=== PATIENT | female | born 1990 | race Two or more races ===

== ENCOUNTER 2018-03-10 20:36 | Emergency (ER) | payer OTHER ==
[~2018-03-10] VITALS: Ht 160 cm; Wt 45.4 kg
== END 2018-03-11 02:40 | disposition home or self-care (01) ==
LOC: ER 20:36
DX: J03.90 Acute tonsillitis, unspecified (principal); J06.9 Acute upper respiratory infection, unspecified; R53.1 Weakness

== ENCOUNTER → 2019-03-08 | Emergency (ER) | payer OTHER ==
[~2019-03-08] VITALS: Ht 162.6 cm; Wt 45.4 kg
== END | disposition home or self-care (01) ==
LOC: ER 07:00
DX: J11.1 Influenza due to unidentified influenza virus with other respiratory manifestations (principal); B96.0 Mycoplasma pneumoniae [M. pneumoniae] as the cause of diseases classified elsewhere

== ENCOUNTER 2019-06-18 02:19 | Emergency (ER) | payer OTHER ==
[~2019-06-18] VITALS: Ht 165.1 cm; Wt 50.8 kg
== END 2019-06-18 07:52 | disposition home or self-care (01) ==
LOC: ER 02:19 → EMR PED 02:20 → ER 02:20 → EMR PED 07:52
DX: R11.11 Vomiting without nausea (principal)

== ENCOUNTER 2019-09-29 15:43 | Emergency (ER) | payer OTHER ==
[~2019-09-29] VITALS: Ht 162.6 cm; Wt 51.7 kg
== END 2019-09-29 19:59 | disposition home or self-care (01) ==
LOC: ER 15:43
DX: N92.1 Excessive and frequent menstruation with irregular cycle (principal)

== ENCOUNTER 2020-01-14 12:16 | Emergency (ER) | payer OTHER ==
[~2020-01-14] VITALS: Ht 165.1 cm; Wt 53.1 kg
== END 2020-01-14 14:53 | disposition home or self-care (01) ==
LOC: ER 12:16
DX: O20.0 Threatened abortion (principal); O46.8X1 Other antepartum hemorrhage, first trimester

== ENCOUNTER 2020-06-24 12:09 | Outpatient (CLI) | payer OTHER | END 2020-06-25 10:00 | disposition home or self-care (01) | LOC: OBS/DEL 12:09 | PROVIDERS: ATTEND Obstetrics & Gynecology | DX: O23.33 Infections of other parts of urinary tract in pregnancy, third trimester (principal); O26.893 Other specified pregnancy related conditions, third trimester; E16.1 Other hypoglycemia ==

== ENCOUNTER 2020-07-23 23:52 | Inpatient (IN) | payer OTHER ==
[~2020-07-23] VITALS: Ht 167.6 cm; Wt 2.3 kg
[2020-07-24] MEDS ORDERED: PRENATAL TABLE1 EAC1 PO (00:36)
[2020-07-24] MEDS ORDERED: FOLIC ACID20 MG PO (00:36)
== END 2020-07-27 13:33 | DRG 788 ==
LOC: OBS/DEL 23:52 → LDR 07-24 09:04 → O/R 07-24 12:16 → OB/GYN 07-24 13:39
PROVIDERS: ADMIT Obstetrics & Gynecology; ATTEND Obstetrics & Gynecology
PROC: 4A1HXCZ Monitoring of Products of Conception, Cardiac Rate, External Approach (ICD-10-PCS; 2020-07-24)
PROC: 10D00Z1 Extraction of Products of Conception, Low, Open Approach (ICD-10-PCS; principal; 2020-07-24 09:45)
DX: O34.211 Maternal care for low transverse scar from previous cesarean delivery (principal); O82 Encounter for cesarean delivery without indication; Z3A.37 37 weeks gestation of pregnancy; Z37.0 Single live birth; Z22.330 Carrier of Group B streptococcus

== ENCOUNTER 2020-08-10 15:30 | Emergency (ER) | payer OTHER ==
[~2020-08-10] VITALS: Ht 165.1 cm; Wt 51.7 kg
[~2020-08-10 15:30] MED LIST: FOLIC ACID20 MG PO; PRENATAL TABLE1 EAC1 PO
== END 2020-08-10 18:26 | disposition home or self-care (01) ==
LOC: ER 15:30
DX: G89.18 Other acute postprocedural pain (principal); R10.84 Generalized abdominal pain; R53.1 Weakness; O90.89 Other complications of the puerperium, not elsewhere classified; Z03.818 Encounter for observation for suspected exposure to other biological agents ruled out

== ENCOUNTER 2020-12-21 15:39 | Emergency (ER) | payer OTHER ==
[~2020-12-21] VITALS: Ht 162.6 cm; Wt 54.4 kg
== END 2020-12-21 18:35 | disposition home or self-care (01) ==
LOC: ER 15:39
DX: B34.9 Viral infection, unspecified (principal); N23 Unspecified renal colic; N39.0 Urinary tract infection, site not specified

== ENCOUNTER 2021-09-27 12:16 | Emergency (ER) | payer OTHER ==
[~2021-09-27] VITALS: Ht 165.1 cm; Wt 51.7 kg
== END 2021-09-27 16:12 | disposition home or self-care (01) ==
LOC: ER 12:16
DX: U07.1 COVID-19 (principal); F41.0 Panic disorder [episodic paroxysmal anxiety]; K52.89 Other specified noninfective gastroenteritis and colitis

== ENCOUNTER 2021-12-08 16:25 | Emergency (ER) | payer OTHER ==
[~2021-12-08] VITALS: Ht 162.6 cm; Wt 54.9 kg
[2021-12-08] MEDS ORDERED: NAPROXEN500 MG PO (19:45)
== END 2021-12-08 19:58 | disposition home or self-care (01) ==
LOC: ER 16:25
DX: M79.604 Pain in right leg (principal); M79.605 Pain in left leg

== ENCOUNTER 2023-08-03 08:51 | Emergency (ER) | payer OTHER ==
[~2023-08-03] VITALS: Ht 160 cm; Wt 54.4 kg
[~2023-08-03 08:51] MED LIST changes: +ACETAMINOPHEN650 M2; +NAPROXEN500 MG PO
[2023-08-03 10:35] LABS: URINE APPEARANCE Clear; URINE BILIRRUBIN Negative (NEGATIVE); URINE BLOOD Moderate; URINE COLOR Yellow; URINE GLUCOSE Negative (NEGATIVE); URINE LEUKOCYTE Negative; URINE NITRATE Negative; URINE PROTEIN Negative (NEGATIVE); URINE UROBILINOGEN 0.2 E.U./dl
[2023-08-03 10:42] LABS: URINE BACTERIA 6.2 uL (0.0-1933); URINE EPITHELIAL CELLS 13.9 uL (0.0-38.8); URINE RBC 9.3 uL (0.0-20.8); URINE WBC 1.8 uL (0.0-23.2)
[2023-08-03 10:46] LABS: MEAN CORPUSCULAR HGB CONC 30.6 g/dl (32.0-36.0); PLATELET COUNT 356 K/uL (150-450); RED BLOOD COUNT 4.51 M/uL (4.00-6.00); RED CELL DISTRIBUTION WIDTH 16.9 % (11.5-14.5)
[2023-08-03 10:47] LABS: MEAN CORPUSCULAR HEMOGLOBIN 20.3 pg (27.00-32.0)
[2023-08-03 10:48] LABS: HEMOGLOBIN 9.2 g/dL (12.0-15.00); MEAN CELL VOLUME 66.4 fL (80.00-100.00)
[2023-08-03 11:29] LABS: CALCIUM 8.6 mg/dL (8.5-10.1); CREATININE SERUM 0.7 mg/dL (0.55-1.02); GFR 97.6; POTASSIUM 4.16 mEq/L (3.5-5.1)
== END 2023-08-03 12:45 | disposition home or self-care (01) ==
LOC: ER 08:51
PROVIDERS: Emergency Medicine
DX: N93.8 Other specified abnormal uterine and vaginal bleeding (principal)

== ENCOUNTER 2023-08-12 22:39 | Emergency (ER) | payer OTHER ==
[~2023-08-12] VITALS: Ht 160 cm; Wt 54.4 kg
== END 2023-08-13 00:06 | disposition home or self-care (01) ==
LOC: ER 22:39
DX: M54.6 Pain in thoracic spine (principal); Z88.8 Allergy status to other drugs, medicaments and biological substances; F41.9 Anxiety disorder, unspecified

== ENCOUNTER 2024-05-06 09:48 | Emergency (ER) | payer OTHER ==
[~2024-05-06] VITALS: Ht 162.6 cm; Wt 59.0 kg
[2024-05-06 11:18] LABS: HEMATOCRIT 33.1 % (36.0-45.00); HEMOGLOBIN 10.3 g/dL (12.0-15.00); MEAN CORPUSCULAR HEMOGLOBIN 19.3 pg (27.00-32.0); PLATELET COUNT 457 K/uL (150-450); RED BLOOD COUNT 5.32 M/uL (4.00-6.00)
[2024-05-06 11:31] LABS: MEAN CELL VOLUME 62.2 fL (80.00-100.00)
[2024-05-06 11:41] LABS: CREATININE SERUM 0.71 mg/dL (0.55-1.02); GFR 96.01
== END 2024-05-06 12:37 | disposition home or self-care (01) ==
LOC: ER 09:49
PROVIDERS: General Practice
DX: D64.9 Anemia, unspecified (principal); R53.81 Other malaise; Z20.822 Contact with and (suspected) exposure to COVID-19; Z88.8 Allergy status to other drugs, medicaments and biological substances

== ENCOUNTER 2024-12-20 13:14 | Emergency (ER) | payer OTHER ==
[~2024-12-20] VITALS: Ht 165.1 cm; Wt 56.7 kg
[2024-12-20] MEDS ORDERED: ORPHENADRINE CITRATE 30 MG/ML AMPUL IM ONE (14:30)
[2024-12-20] MEDS ORDERED: KETOROLAC TROMETHAMINE 30 MG VIAL IM ONE (14:30)
[2024-12-20] MEDS ORDERED: NORFLEX100MG PO (14:39)
[2024-12-20] MEDS ORDERED: DICLOFENAC SODI50 MG PO (14:39)
[2024-12-20] MEDS ORDERED: ORPHENADRINE CITRATE 30 MG/ML AMPUL ONE (14:42)
[2024-12-20] MEDS ORDERED: KETOROLAC TROMETHAMINE 30 MG VIAL ONE (14:42)
== END 2024-12-20 14:53 ==
LOC: ER 13:17
DX: M94.0 Chondrocostal junction syndrome [Tietze] (principal); Z88.8 Allergy status to other drugs, medicaments and biological substances

== ENCOUNTER 2025-03-09 21:50 | Emergency (ER) | payer OTHER ==
[~2025-03-09] VITALS: Ht 165.1 cm; Wt 63.0 kg
[~2025-03-09 21:50] MED LIST changes: +DICLOFENAC SODI50 MG PO; +NORFLEX100MG PO
[2025-03-09] MEDS ORDERED: KETOROLAC TROMETHAMINE 30 MG VIAL IM STA (23:06)
[2025-03-09] MEDS ORDERED: ORPHENADRINE CITRATE 30 MG/ML AMPUL IM STA (23:06)
[2025-03-09] MEDS ORDERED: KETOROLAC TROMETHAMINE 30 MG VIAL ONE (23:07)
[2025-03-09] MEDS ORDERED: ORPHENADRINE CITRATE 30 MG/ML AMPUL ONE (23:07)
== END 2025-03-09 23:35 | disposition home or self-care (01) ==
LOC: ER 21:50
DX: M54.89 Other dorsalgia (principal); R07.89 Other chest pain; Z88.8 Allergy status to other drugs, medicaments and biological substances

== ENCOUNTER 2025-05-12 17:55 | Emergency (ER) | payer OTHER ==
[~2025-05-12] VITALS: Ht 167.6 cm; Wt 58.5 kg
[2025-05-12] MEDS ORDERED: AMOX1TAB5 PO (19:10)
[2025-05-12] MEDS ORDERED: PEPCID AC20 MG PO (19:10)
[2025-05-12] MEDS ORDERED: KETO10TA2 PO (19:10)
[2025-05-12] MEDS ORDERED: CEFTRIAXONE SODIUM 1,000 MG VIAL ONE (19:11)
[2025-05-12] MEDS ORDERED: KETOROLAC TROMETHAMINE 60 MG VIAL IM ONE ×2 (19:11→19:15)
[2025-05-12] MEDS ORDERED: LIDOCAINE HCL 1% 10ML VIAL ONE (19:12)
[2025-05-12] MEDS ORDERED: CEFTRIAXONE SODIUM 1,000 MG VIAL IM ONE (19:15)
== END 2025-05-12 19:26 | disposition home or self-care (01) ==
LOC: ER 17:55
DX: K08.89 Other specified disorders of teeth and supporting structures (principal); Z88.5 Allergy status to narcotic agent

== ENCOUNTER → 2025-08-17 | Emergency (ER) | payer OTHER ==
[~2025-08-17] VITALS: Ht 167.6 cm; Wt 59.9 kg
[~2025-08-17] MED LIST changes: +AMOX1TAB5 PO; +KETO10TA2 PO; +PEPCID AC20 MG PO
== END | disposition left against medical advice (07) ==
LOC: ER 05:33
DX: Z53.21 Procedure and treatment not carried out due to patient leaving prior to being seen by health care provider (principal)